=== PATIENT | male | born 1955 | race Caucasian/White ===

== ENCOUNTER 2019-05-09 05:40 | Inpatient (IN) | payer OTHER ==
[~2019-05-09] VITALS: Ht 175.3 cm; Wt 132.0 kg
[2019-05-09] VITALS (11 sets, daily range): BP systolic 125–155; BP diastolic 66–81
[~2019-05-09 05:40] MED LIST: HYDROCHLOROTH12.5 M1 PO; LOTREL 10-20 M1 EACH PO; PROZAC20 MG PO
--- NOTE | 2019-05-09 20:06 | NUR ---
PATIENT ADMITTED TO [facility] FROM OR, SURGERY DONE BY DR CRUZ REMOVAL OF SQUAMOUS CELL RIGHT SIDE OF NECK. PATIENT HAS LIANNE DRAIN EMPTIED 20CC OF BLOODY DRAINAGE AT END OF THE SHIFT. PATIENT HAS 2 IV'S R/L ARMS. PATIENT RECEIVED 1 ANTIBIOTIC THIS SHIFT. PATIENT GIVEN HYDROCODONE 2 TABLETS WITH PARTIAL RELIEF. MORPHINE ORDER NOT CLEAR PER DR CRUZ, THIS RN CALLED PATENT AGENT DOCTOR/DR PATRICIA JOVEL WHO GAVE ORDER FOR MORPHINE 2-3 MG IV EVERY 2 HOURS/PRN. WILL CONTINUE TO MONITOR.
--- NOTE | 2019-05-10 04:50 | NUR ---
ASSUMED CARE OF PT AT 1900HRS. PT AOX4 AND CALLS FOR HELP NEEDED. PT IS POST OP DAY 1. PT HAS SOME SURGICAL SITE PAIN/DISCOMFORT BUT WAS COMFORTABLE WITH PRESCRIBED PAIN MEDS. MINIMAL DRAINAGE FROM NECK LIANNE DRAIN. NO OTHER S/S OF ACUTE DISTRESS. WILL CONTINUE TO MONITOR.
[2019-05-10 05:19] VITALS: BP 126/61
--- NOTE | 2019-05-10 08:05 | O ---
[facility] [address] [address] OPERATIVE REPORT Name: JAY VACA Room #: 455-P [facility] Daphnie Velazquez#: [id number] Admission: 05/09/19 ������������������ Attend Phys: Lizz Topete Discharge: ������������������ Date of : 51 Report #: [id number] THIS REPORT FOR: //name// CC: Carlos Ann DATE OF SERVICE: 05/09/2019 DATE OF PROCEDURE: 05/09/2019. PROCEDURE: Right [place] [address]. PREOPERATIVE DIAGNOSIS: Squamous cell carcinoma of the neck. POSTOPERATIVE DIAGNOSIS: Squamous cell carcinoma of the neck. SURGEON: Tae Ann M.D. ANESTHESIA: General. ESTIMATED BLOOD LOSS: 50 mL. COMPLICATIONS: None. FINDINGS: The patient was found to have a large mass involving right level two of the neck. INDICATIONS FOR PROCEDURE: The patient is a 63-year-old gentleman who has a history of a squamous cell carcinoma of the neck skin, which was completely excised in 09/2018. He presented to the clinic with complaint of a mass in the submandibular region of the right neck. This was rapidly enlarging. Fine needle aspiration biopsy confirmed squamous cell carcinoma. Treatment options were discussed with him, including a surgical incision versus radiation and chemotherapy. He decided to proceed with surgical excision, followed by adjunctive treatment. The risks, benefits and alternatives of the surgery were discussed with him and he agreed to proceed. DESCRIPTION OF PROCEDURE: After informed consent was obtained, the patient was taken to the operating room and placed in the supine position. He underwent general anesthesia with endotracheal intubation. He was prepped and draped in the usual fashion and a timeout was performed and the correct patient and procedure were identified. The recurrent laryngeal nerve monitor was set up to monitor the orbicularis wilber and it was found to be functioning adequately. Approximately 7 mL of 1% lidocaine with 1:100,000 epinephrine were marked in the skin crease of the neck at approximately the level of the superior aspect of the thyroid cartilage. After time was given for vasoconstriction to take effect, [facility] [address] [place] [address] OPERATIVE REPORT Name: NOLAJAY Kerrie Room #: 455-P [facility] Caroline#: [id number] Admission: 05/09/19 ������������������ Attend Phys: Lizz Topete Discharge: ������������������ Date of : 51 Report #: [id number] the skin was incised with a 15 blade scalpel. The subcutaneous tissue and platysma were divided with the Bovie cautery. Subplatysmal flap was then elevated superiorly and inferiorly. The platysmal flap had to be elevated over a large mass in left level two. Circumferential dissection was then carried out around this mass. It was noted to be attached posteriorly to the sternocleidomastoid portion of the sternocleidomastoid muscle was dissected and left intact on the mass. Superiorly, the marginal mandibular nerve was identified and this was confirmed with the nerve stimulator. This was then dissected free of the mass bluntly using hemostat and elevated superiorly. The sternocleidomastoid muscle was then retracted laterally. The fibroadipose tissue was then grasped and this was pulled from lateral to medial using the Bovie cautery as well as the Harmonic scalpel and the mosquito dissector. Blunt dissection was used to identify the eleventh cranial nerve and this was confirmed also with stimulation and left intact. The fibroadipose tissue was then pedicled on the jugular vein and divided from the jugular vein using the Harmonic scalpel. The large mass with a level 2 lymph nodes were thus removed and sent off for pathology. Level 3 lymph nodes were also removed in a similar fashion and also sent for pathology. The wound was then copiously irrigated with sterile water and the incision was then closed in layers. Prior to closure, a 10 round LIANNE drain was placed into the incision. This was secured to the skin with a 2-0 silk suture. The skin was then closed in layers with 3-0 Vicryls to approximate the subcutaneous tissue and platysma and the skin was closed with a running 4-0 Monocryl as well as Dermabond. The patient was then turned back to the Anesthesia service successfully extubated in the operating room and taken to the recovery room in stable condition. All counts were reported as correct and there were no complications during the procedure. DISPOSITION: The patient will be observed in the PACU until he meets criteria, at which point, he will be admitted for observation. If he does well overnight, drain will be removed in the morning and he will be discharged home. ��������������������������������������������� <ELECTRONICALLY SIGNED> ���������������������������������������� By: Tae Ann MD ��������������������������������������������� 05/10/19 0805 [id number] 1410 Tae Ann MD /nt
[2019-05-10 08:26] VITALS: BP 137/74
--- NOTE | 2019-05-10 13:51 | NUR ---
Received awake on bed. Due medications given as prescribed without difficulty. With post op wound at R neck, with LIANNE drain- minimal output. Complain of pain, PRN medication given as prescribed with partial to complete pain relief. Visited by relative today. Pt seen by surgeon this am, to continue pain control, may ambulate, likely to go home tomorrow. Patient assessed for initial ambulation post op- patient stable on his feet, no dizziness and light headedness noted; able to use the bathroom. floral manager called re: patient's admitting status- must fill up PINK form and be discharged prior to 1530 today, told CM that as per Drs notes pt likely to be d/c tomorrow, to change status to inpatient instead on Observation. Called Dr Strong- may change status to in patient- US changed status to inpatient, CM aware.
[2019-05-10 14:26] VITALS: BP 114/62
--- NOTE | 2019-05-10 14:43 | NUR ---
PT ADMITTED RELATED TO RIGHT NECK DISSECTION. CM REVIEWED CHART AND SPOKE WITH CARE TEAM. CM MET WITH PT AT BEDSIDE THIS DAY. PT IS A&O X4. CM ROLE INTRODUCED. PT INDICATED HE LIVES IN A HOUSE WITH HIS SON WITH 1 STEP TO ENTER AND 13 STEPS INSIDE. 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 PT INDICATED NO DME OF HH HX. PT INDICATED HIS PCP IS ERIN ARTEAGA. PT INDICATED HE PLANS TO RETURN HOME ONCE MEDICALLY STABLE. CM TO FOLLOW INDICATED WITH DC PLANNING.
[2019-05-10 19:25] VITALS: BP 121/47
--- NOTE | 2019-05-11 03:09 | NUR ---
ASSUMED CARE OF PT AT 1900 HRS. PT AOX4 AND CALLS FOR HELP NEEDED. PT REPORTED SOME SURGICAL SITE PAIN/DISCOMFORT AND WAS COMFORTABLE WITH PRN PAIN MEDS. PT WAS ABLE TO SLEEP THIS SHIFT. LIANNE DRAIN HAD MINIMAL OUTPUT. PT WALKED TO THE TOILET WITH STANDBY ASSIST. NO OTHER S/S OF ACUTE DISTRESS. WILL CONTINUE TO MONITOR.
[2019-05-11 04:49] VITALS: BP 121/60
[2019-05-11 08:12] VITALS: BP 140/78
[2019-05-11 08:26] VITALS: BP 121/60
--- NOTE | 2019-05-11 09:52 | NUR ---
DIS PT IS FOR DC. IV DC'D. DC PACKET PROVIDE. LIANNE DRAIN PULLED OUT BY PROVIDER. DRESSING CHANGED THIS AM IN LIANNE SITE.
--- NOTE | 2019-05-11 21:05 | PATH ---
[facility] [address] [place] [address] PATHOLOGY RPT PROCEDURE Name: JAY VACA Room #: 455-P [facility] M.R.#: [id number] ������������������ Admission: 05/10/19 ������������������ Date of : 51 Discharge: 05/11/19 Report #: [id number] Path Case #: [id number] [facility] Accession Number: [id number] . 01 Material submitted: . PART A: neck - RIGHT NECK LEVEL II. Modifiers: right PART B: neck - RIGHT NECK LEVEL III. Modifiers: right . 01 Clinical history: . SCC of the right neck . 02 Diagnosis: A. Lymph nodes, "right neck level II", lymph node dissection: - Metastatic moderate to poorly-differentiated keratinizing squamous cell carcinoma, present in 1 out of 9 lymph nodes (1/9). - Scant adjacent skeletal muscle with no evidence of carcinoma. . B. Lymph nodes, "right neck level III" lymph node dissection: - Eight lymph nodes with no evidence of carcinoma (0/8). . (Please see comment) . (DAVID:dev; 05/11/2019) KEYSHA/05/11/2019 . 02 Comment: The positive lymph node in specimen "A" measures 4.8 cm in greatest dimension. It is possible that this represents several matted together positive lymph nodes. (SKM:dev; 05/11/2019) . 02 Electronically signed: . Bassem Gupta MD, Pathologist NPI- [id number] . 01 Gross description: . A. The specimen is received in formalin, labeled "Jay Vaca, right neck level II" and consists of a segment of yellow lobulated tissue (6.0 x 2.9 x 1.5 cm) attached to a fluctuant brown nodule measuring 4.8 x 3.2 x 3.2 cm. Partially overlying the nodule is muscle. The nodule is inked black. Sectioning reveals the nodule is variegated solid white-pink to cystic, soft, and friable. The nodule approaches the overlying muscle. Received separately is another segment of yellow lobulated tissue measuring 4.3 x 2.4 x 1.0 cm. Palpation and sectioning of the lobulated tissue reveals multiple lymph node candidates measuring between 0.2 cm and 3.8 cm. The largest candidate is partially fat replaced. No jugular vein or nerve is identified. Knockdown Worker sections are submitted as follows: [address] [address] PATHOLOGY RPT PROCEDURE Name: JAY VACA Room #: 455-P [facility] M.R.#: [id number] ������������������ Admission: 05/10/19 ������������������ Date of : 51 Discharge: 05/11/19 Report #: [id number] Path Case #: [id number] . A1-A5: Mass with relationship to overlying muscle A6: 6 intact lymph node candidates A7: One serially sectioned lymph node candidate A8: One serially sectioned lymph node candidate A9: One trisected in one bisected (inked black) lymph node candidates A10-A14: Largest lymph node candidate, serially sectioned A15: 5 intact lymph node candidates . . B. The specimen is received in formalin, labeled "Jay Vaca, right neck level III" and consists of a segment of yellow lobulated tissue measuring 5.4 x 3.0 x 1.0 cm. Present within are multiple lymph node candidates ranging between 0.2 cm and 2.0 cm which are entirely submitted as follows: . B1: 4 intact lymph node candidates B2: One serially sectioned lymph node candidate B3: Largest lymph node candidate, serially sectioned B4: One trisected lymph node candidate B5-B6: Rest of specimen for microscopic lymph node identification (SDY; 05/10/2019) SYU/SYU . 02 Pathologist provided ICD-10: C77.0 . 02 CPT . 035616, [id number] Specimen Comment: A courtesy copy of this report has been sent to Specimen Comment: [phone]. Specimen Comment: Report sent to Performed at: [address], [place], [place] [id number] MD Familia Grover MD Phone: [phone] Performed at: [address] [id number] MD Bharti Carballo MD Phone: [phone]
== END 2019-05-11 11:55 | disposition home or self-care (01) | DRG 581 ==
LOC: 4W 05:40 → TBA 05:40 → PRE 13:22 → 4W 15:26 → ENTRNSPT 05-11 11:55 → EDTRNSPTSTS 05-11 11:58
PROVIDERS: ADMIT Otolaryngology
PROC: 07T10ZZ Resection of Right Neck Lymphatic, Open Approach (ICD-10-PCS; principal; 2019-05-09)
DX: C44.42 Squamous cell carcinoma of skin of scalp and neck (principal); Z79.899 Other long term (current) drug therapy; F41.9 Anxiety disorder, unspecified; Z82.49 Family history of ischemic heart disease and other diseases of the circulatory system
CPT/HCPCS: 10047; 50010; 50101; 50331; 50386; 50398; 50455; 51412; 52190; 52220; 52225; 54118; 56524; 56526; 56528; 57006; 62110; 62900; 65020; 65040; 65065; 65131; 70005